=== PATIENT | female | born 1955 | race Caucasian/White ===

== ENCOUNTER 2018-01-24 09:59 | Outpatient (CLI) | payer BC | END 2018-01-24 10:00 | disposition home or self-care (01) | LOC: BICMAMMO 09:59 | PROVIDERS: ATTEND Family Medicine | DX: Z12.31 Encounter for screening mammogram for malignant neoplasm of breast (principal) | CPT/HCPCS: 77063; 77067 ==

== ENCOUNTER 2018-05-23 15:08 | Outpatient (CLI) | payer BC ==
--- NOTE | 2018-05-23 18:45 | BD ---
BONE MINERAL DENSITY STUDY: Comparison: None. FINDINGS: 52-year-old post-menopausal female for screening. Comparison: 05-17-17 Lumbar Spine: BMD (g/cm2) L1 0.784 T-Score: -1.9 L2 0.807 T-Score: -2.0 L3 0.783 T-Score: -2.7 L4 0.812 T-Score: -2.3 L1-L4 0.797 T-Score: -2.3 Femoral Neck: 0.525 T-Score: -2.9 Total Femur: 0.647 T-Score: -2.4 Impression: Osteoporosis. This patient has a 10-year fracture risk of a major osteoporotic fracture of 19% and a hip fracture of 5.9%. POS: [facility]
== END 2018-05-23 15:09 | disposition home or self-care (01) ==
LOC: BICMAMMO 15:08
PROVIDERS: ATTEND Internal Medicine
DX: M81.0 Age-related osteoporosis without current pathological fracture (principal)
CPT/HCPCS: 77080

== ENCOUNTER 2021-01-19 12:41 | Outpatient (CLI) | payer BC | END 2021-01-19 12:42 | disposition home or self-care (01) | LOC: BICULT 12:41 | PROVIDERS: ATTEND Family Medicine | DX: Z12.31 Encounter for screening mammogram for malignant neoplasm of breast (principal); R94.6 Abnormal results of thyroid function studies; E04.1 Nontoxic single thyroid nodule | CPT/HCPCS: 76536; 77063; 77067 ==

== ENCOUNTER 2022-02-01 09:33 | Outpatient (CLI) | payer BC | END 2022-02-01 09:34 | disposition home or self-care (01) | LOC: BICMAMMO 09:33 | PROVIDERS: ATTEND Family Medicine | DX: Z13.820 Encounter for screening for osteoporosis (principal); Z78.0 Asymptomatic menopausal state; M81.0 Age-related osteoporosis without current pathological fracture | CPT/HCPCS: 77080 ==

== ENCOUNTER 2023-02-08 10:21 | Outpatient (CLI) | payer BC | END 2023-02-08 10:22 | disposition home or self-care (01) | LOC: BICULT 10:21 | PROVIDERS: ATTEND Family Medicine | DX: E04.1 Nontoxic single thyroid nodule (principal) | CPT/HCPCS: 76536 ==